=== PATIENT | male | born 2000 | race African-American/Black ===

== ENCOUNTER 2020-08-22 19:55 | Emergency (ER) | payer MEDICAID, OTHER ==
[~2020-08-22] VITALS: Ht 188 cm; Wt 127.0 kg
--- NOTE | 2020-08-22 20:00 | NUR ---
PT BIBSELF C/O OF RT MIDDLE FINGER PAIN S/P FIXING GARAGE DOOR. PT AAOX4 BREATHING EVENLY AND UNLABORED. PT FINGER WAS SKINNED. EMT AT BEDSIDE FOR WOUND CARE. PT SKIN IS WARM AND DRY. PT ATTACHED TO MONITOR. CALL LIGHT WITHIN REACH
--- NOTE | 2020-08-22 20:40 | NUR ---
Patient discharged to home in stable condition. Written and verbal after care instructions given. Patient verbalizes understanding of instruction. Pt ambulatory with a steady gait
[2020-08-22 20:45] VITALS: BP 140/98
== END 2020-08-22 20:40 | disposition home or self-care (01) ==
LOC: ER 20:02
DX: S61.212A Laceration without foreign body of right middle finger without damage to nail, initial encounter (principal); R03.0 Elevated blood-pressure reading, without diagnosis of hypertension; J45.909 Unspecified asthma, uncomplicated; W23.0XXA Caught, crushed, jammed, or pinched between moving objects, initial encounter; Y93.89 Activity, other specified; Y92.89 Other specified places as the place of occurrence of the external cause; Y99.8 Other external cause status
CPT/HCPCS: 99282; A6403